=== PATIENT | female | born 1945 | race Caucasian/White ===

== ENCOUNTER 2022-04-04 07:21 | Outpatient (CLI) | payer MEDICARE | END 2022-04-04 23:59 | disposition home or self-care (01) | LOC: LAB 07:21 | PROVIDERS: ATTEND Surgery | DX: Z01.812 Encounter for preprocedural laboratory examination (principal); Z20.822 Contact with and (suspected) exposure to COVID-19; R19.7 Diarrhea, unspecified; R10.9 Unspecified abdominal pain; K62.5 Hemorrhage of anus and rectum ==

== ENCOUNTER 2022-04-06 07:51 | Day surgery (SDC) | payer MEDICARE ==
[2022-04-06] MEDS ORDERED: FENTANYL CITRATE 100 MCG/2 ML AMPUL ONE (08:01)
[2022-04-06] MEDS ORDERED: LIDOCAINE-MPF 2% 5 ML VIAL ONE (09:41)
[2022-04-06] MEDS ORDERED: PROPOFOL 200 MG/20 ML BOTTLE ONE (09:41)
== END 2022-04-06 10:47 | disposition home or self-care (01) ==
LOC: DS 07:51
PROVIDERS: ATTEND Surgery
DX: D50.9 Iron deficiency anemia, unspecified (principal); K52.9 Noninfective gastroenteritis and colitis, unspecified; K62.5 Hemorrhage of anus and rectum; K63.89 Other specified diseases of intestine; K31.89 Other diseases of stomach and duodenum; K29.50 Unspecified chronic gastritis without bleeding; B96.81 Helicobacter pylori [H. pylori] as the cause of diseases classified elsewhere; I10 Essential (primary) hypertension; J45.909 Unspecified asthma, uncomplicated; Z79.899 Other long term (current) drug therapy; Z98.890 Other specified postprocedural states
CPT/HCPCS: 45380; 43239; 71045; J3490; J3010; J7120; A4663